=== PATIENT | male | born 1990 | race Caucasian/White ===

== ENCOUNTER 2023-07-23 06:31 | Day surgery (SDC) | payer OTHER ==
[2023-07-20 10:35] VITALS: BMI 43.9
[2023-07-23] MEDS ORDERED: Dexmedetomidine 200 MCG/2 ML VIAL ONE (06:43)
[2023-07-23] MEDS ORDERED: SUGAMMADEX SODIUM 200 MG/2 ML VIAL ONE (06:43)
[2023-07-23] MEDS ORDERED: Oxymetazoline HCl 0.05% ( 15 ML ) ONE (07:18)
[2023-07-23] MEDS ORDERED: Triple Antibiotic Oint 1 GM Packet ONE (08:20)
[2023-07-23] MEDS ORDERED: Lidocaine 1% w/Epinephrine 1:100K 20 ML VIAL ONE (08:20)
[2023-07-23] MEDS ORDERED: Midazolam HCl 2 mg/2 ml Vial ONE (08:21)
[2023-07-23] MEDS ORDERED: Dexamethasone 20 MG/5 ML VIAL ONE (08:21)
[2023-07-23] MEDS ORDERED: Rocuronium Bromide 10 MG/ML (10ML VIAL) ONE ×2 (08:21→08:22)
[2023-07-23] MEDS ORDERED: Ondansetron PF 4 MG/2 ML Vial ONE (08:21)
[2023-07-23] MEDS ORDERED: Lidocaine 1% PF 5 ML VIAL ONE (08:21)
[2023-07-23] MEDS ORDERED: Fentanyl 250 MCG/5 ML VIAL ONE (08:21)
[2023-07-23] MEDS ORDERED: PROPOFOL 20 ML ONE (08:22)
[2023-07-23] MEDS ORDERED: CEFAZOLIN 2 GM VIAL ONE (08:30)
== END 2023-07-23 11:00 | disposition home or self-care (01) ==
LOC: CSHSDC 06:31
PROVIDERS: ATTEND Otolaryngology Plastic Surgery within the Head & Neck
PROC: 09SM0ZZ Reposition Nasal Septum, Open Approach (ICD-10-PCS; principal; 2023-07-23)
DX: J34.2 Deviated nasal septum (principal); J34.3 Hypertrophy of nasal turbinates; J30.9 Allergic rhinitis, unspecified; J34.89 Other specified disorders of nose and nasal sinuses; E66.01 Morbid (severe) obesity due to excess calories; Z68.43 Body mass index [BMI] 50.0-59.9, adult; Z88.8 Allergy status to other drugs, medicaments and biological substances; Z79.899 Other long term (current) drug therapy
CPT/HCPCS: J1100; J2250; J2405; J2704; J3010